=== PATIENT | male | born 1950 ===

== ENCOUNTER → 2017-03-18 | Outpatient (CLI) | payer OTHER | LOC: NPA 13:00 | PROVIDERS: ATTEND Internal Medicine Pulmonary Disease | DX: R69 Illness, unspecified (principal) ==

== ENCOUNTER → 2017-03-23 | Outpatient (CLI) | payer OTHER | LOC: NPA 13:00 | PROVIDERS: ATTEND Internal Medicine Pulmonary Disease | DX: R69 Illness, unspecified (principal) ==